=== PATIENT | male | born 1960 | race Caucasian/White ===

== ENCOUNTER 2016-04-03 21:03 | Emergency (ER) | payer OTHER ==
[~2016-04-03] VITALS: Ht 182.9 cm; Wt 140.6 kg
[2016-04-03 22:16] LABS: BUN/Creatinine Ratio 15.8; Calcium 8.1 mg/dL (8.5-10.1); Magnesium 2.5 mg/dL (1.6-2.6); Potassium 4.6 mmol/L (3.5-5.1)
[2016-04-03 22:19] LABS: Bilirubin, Total 0.3 mg/dL (0.2-1.0); Total Protein 7.1 g/dL (6.4-8.2)
[2016-04-03 22:23] LABS: Basophils # (auto) 0 uL; Basophils % (auto) 0.6 % (0.0-2.0); Eosinophils # (auto) 0.2 uL; Eosinophils % (auto) 2.4 % (0.0-7.0); Lymphocytes # (auto) 2.4 uL; Lymphocytes % (auto) 33.4 % (10.0-50.0); Mean Corpuscular Hemoglobin 30.9 pg (28.0-32.0); Mean Corpuscular Hgb Conc. 32.7 g/dL (32.0-36.0); Mean Corpuscular Volume 94.6 fL (80.0-100.0); Mean Platelet Volume 8.1 fL (7.4-10.4); Monocytes # (auto) 0.6 uL; Monocytes % (auto) 8.6 % (0.0-12.0); Neutrophils # (auto) 3.9 uL; Platelet Count (auto) 214 10^3/uL (140-450); Red Cell Distribution Width 14.8 % (11.6-16.0); White Blood Cell 7.1 10^3/uL (4.4-10.8)
[2016-04-03 23:13] LABS: B-Type Natriuretic Peptide 75.2 pg/mL (0-100)
[2016-04-03 23:27] LABS: Temperature: 23.5 C (20.0-25.0)
[2016-04-04 00:02] LABS: Urine Bilirubin Negative (Negative); Urine Blood Negative /uL (Negative); Urine Color Yellow (Yellow); Urine Glucose Normal (Normal); Urine Ketone Negative (Negative); Urine Mucus FEW (None Seen); Urine Nitrite Negative (Negative); Urine RBC 1 /hpf (0 - 3); Urine Squamous Epithelial Cell FEW /hpf (<5); Urine Urobilinogen Normal (Negative)
[2016-04-04 00:12] VITALS: BP 150/73
== END 2016-04-04 01:15 | disposition left against medical advice (07) ==
LOC: ER 21:09
DX: R06.02 Shortness of breath (principal); I10 Essential (primary) hypertension; F17.210 Nicotine dependence, cigarettes, uncomplicated; Z53.29 Procedure and treatment not carried out because of patient's decision for other reasons
CPT/HCPCS: 36415; 71020; 80053; 81001; 83735; 83880; 84484; 85025; 93005; 94761

== ENCOUNTER 2016-08-16 22:05 | Emergency (ER) | payer OTHER ==
[~2016-08-16] VITALS: Ht 182.9 cm; Wt 145.1 kg
[2016-08-16 22:20] VITALS: BP 109/59
== END 2016-08-17 01:15 | disposition left against medical advice (07) ==
LOC: ER 22:08
DX: M79.89 Other specified soft tissue disorders (principal); M79.605 Pain in left leg; M79.604 Pain in right leg; Z53.21 Procedure and treatment not carried out due to patient leaving prior to being seen by health care provider
CPT/HCPCS: 93005